=== PATIENT | male | born 1965 | race Caucasian/White ===

== ENCOUNTER 2021-05-20 21:37 | Inpatient (IN) | payer OTHER ==
[2021-05-20] MEDS ORDERED: ACETAMINOPHEN 500 MG TABLET (FP) PO ONE (22:05)
[2021-05-20] MEDS ORDERED: SODIUM CHLORIDE 1,000 ML ONE (22:05)
[2021-05-20 22:13] VITALS: BMI 29.7
[2021-05-20] MEDS ORDERED: ACETAMINOPHEN 500 MG TABLET (FP) ONE (22:38)
[2021-05-20 22:53] LABS: HEMATOCRIT 45.3 % (35.4-49); HEMOGLOBIN 15.2 GM/dL (11.7-16.9); MCHC 33.6 g/dl (32.0-35.9); MEAN CELL VOLUME 89.4 fl (80-96); MEAN PLT VOLUME 7.7 fl (7.5-11.1); PLATELET COUNT 244 10^3/uL (134-434); RBC 5.07 M/mm3 (4.00-5.60); RDW 13.1 % (11.9-15.9); WHITE BLOOD COUNT 7.2 K/mm3 (4.0-10.0)
[2021-05-20 22:58] LABS: BASO % 0.6 % (0-2.0); EOS % 0.5 % (0-4.5); LYMPH % 7.8 % (8-40); MONO % 12.7 % (3.8-10.2); NEUT % 78.4 % (42.8-82.8)
[2021-05-20 23:00] LABS: ALBUMIN 4.5 g/dl (3.4-5.0); BILIRUBIN,TOTAL 0.7 mg/dl (0.2-1); CALCIUM 9.7 mg/dl (8.5-10); CREATININE 0.5 mg/dl (0.55-1.3); TOT PROT 7.3 g/dl (6.4-8.2)
[2021-05-21 07:04] LABS: EPI CELLS 1 /uL (0-25.1); HYALINE CASTS 0 /uL (0-3.1); PH,URINE 5.5 (5.0-8.0); URINE APPEARANCE CLEAR; URINE BACTERIA 1 /uL (0-1359); URINE BILIRUBIN NEGATIVE (NEGATIVE); URINE COLOR YELLOW; URINE GLUCOSE (UA) NEGATIVE (NEGATIVE); URINE KETONE NEGATIVE (NEGATIVE); URINE LEUK ESTERASE NEGATIVE (NEGATIVE); URINE NITRITE NEGATIVE (NEGATIVE); URINE PROTEIN NEGATIVE (NEGATIVE); URINE RBC 2 /uL (0-23.9); URINE UROBILINOGEN 0.2 mg/dL (0.2-1.0); URINE WBC 2 /uL (0-25.8)
[2021-05-21] MEDS ORDERED: ACETAMINOPHEN 1000 MG/100 ML BAG IVPB ONE ×3 (07:33→09:00)
[2021-05-21] MEDS ORDERED: DEXAMETHASONE SOD PHOSPHATE 10 MG/1 ML VIAL IVPUSH ONE ×3 (07:51→09:00)
[2021-05-21] MEDS ORDERED: DEXAMETHASONE SOD PHOSPHATE 4 MG/1 ML VIAL ONE (08:08)
[2021-05-21] MEDS ORDERED: ACETAMINOPHEN INJECTION 100 ML IVPB ONE (08:08)
[2021-05-21] MEDS ORDERED: ENOXAPARIN NA (PORCINE) 60 MG/0.6 ML DISP.SYRIN SQ ONE (11:59)
[2021-05-21] MEDS: ENOXAPARIN NA (PORCINE) 40 MG/0.4 ML DISP.SYRIN SQ SCH (12:10)
[2021-05-21 12:14] LABS: ALBUMIN 4.2 g/dl (3.4-5.0); BILIRUBIN,TOTAL 0.4 mg/dl (0.2-1); CALCIUM 9.3 mg/dl (8.5-10); CREATININE 0.5 mg/dl (0.55-1.3); MAGNESIUM 2.2 mg/dL (1.8-2.4); TOT PROT 6.8 g/dl (6.4-8.2)
[2021-05-21 12:48] LABS: BASO % 0.7 % (0-2.0); EOS % 0.1 % (0-4.5); HEMOGLOBIN 14.9 GM/dL (11.7-16.9); LYMPH % 5.4 % (8-40); MCH 30.2 pg (25.7-33.7); MCHC 33.2 g/dl (32.0-35.9); MEAN CELL VOLUME 90.8 fl (80-96); MONO % 5.7 % (3.8-10.2); NEUT % 88.1 % (42.8-82.8); PLATELET COUNT 249 10^3/uL (134-434); RBC 4.95 M/mm3 (4.00-5.60); RDW 13.3 % (11.9-15.9)
[2021-05-22] MEDS ORDERED: PATIENT'S OWN MEDICATION (NON-FORMULARY) (Riluzole [Riluzole] 50 MG Tablet) PO SCH (09:00)
[2021-05-22 09:58] LABS: BASO % 0.3 % (0-2.0); EOS % 0.2 % (0-4.5); HEMATOCRIT 42.8 % (35.4-49); HEMOGLOBIN 14.6 GM/dL (11.7-16.9); LYMPH % 15.2 % (8-40); MCH 30.6 pg (25.7-33.7); MCHC 34.1 g/dl (32.0-35.9); MEAN CELL VOLUME 89.8 fl (80-96); MEAN PLT VOLUME 7.5 fl (7.5-11.1); MONO % 14.6 % (3.8-10.2); NEUT % 69.7 % (42.8-82.8); PLATELET COUNT 236 10^3/uL (134-434); RBC 4.76 M/mm3 (4.00-5.60); RDW 13.1 % (11.9-15.9); WHITE BLOOD COUNT 7.1 K/mm3 (4.0-10.0)
[2021-05-22] MEDS: ENOXAPARIN NA (PORCINE) 40 MG/0.4 ML DISP.SYRIN SQ SCH (10:25)
[2021-05-22] MEDS: ASPIRIN COATED 81 MG TABLET.EC PO SCH (10:26)
[2021-05-22] MEDS: DEXAMETHASONE SOD PHOSPHATE 4 MG/1 ML VIAL IVPUSH SCH (10:26)
[2021-05-22 10:41] LABS: CALCIUM 9.3 mg/dL (8.5-10.1)
[2021-05-22 10:42] LABS: ALBUMIN 3.6 g/dl (3.4-5.0); BLOOD UREA NITROGEN 22.4 mg/dL (7-18); MAGNESIUM 2.5 mg/dL (1.8-2.4)
[2021-05-22 10:44] LABS: CREATININE 0.6 mg/dL (0.55-1.3)
[2021-05-22 10:46] LABS: BILIRUBIN,TOTAL 0.4 mg/dL (0.2-1); TOT PROT 6.8 g/dl (6.4-8.2)
[2021-05-22] MEDS ORDERED: REMDESIVIR 200 MG in SODIUM CHLORIDE 250 ML IVPB ONE (11:30)
[2021-05-22] MEDS: ATORVASTATIN CA 10 MG TABLET (FP) PO SCH (21:40)
[2021-05-23] MEDS ORDERED: [UNRECOGNIZED DRUG - OTHER] IJ SCH (10:00)
[2021-05-23] MEDS ORDERED: METHYLCOBALAMIN NR SCH (10:00)
[2021-05-23] MEDS ORDERED: METHYLCOBALAMIN IJ SCH (10:00)
[2021-05-23 10:03] LABS: HEMATOCRIT 40.9 % (35.4-49); HEMOGLOBIN 13.5 GM/dL (11.7-16.9); MCH 29.7 pg (25.7-33.7); MCHC 32.9 g/dl (32.0-35.9); MEAN CELL VOLUME 90.2 fl (80-96); MEAN PLT VOLUME 7.9 fl (7.5-11.1); PLATELET COUNT 247 10^3/uL (134-434); RBC 4.54 M/mm3 (4.00-5.60); RDW 13.1 % (11.9-15.9); WHITE BLOOD COUNT 5.7 K/mm3 (4.0-10.0)
[2021-05-23] MEDS: ENOXAPARIN NA (PORCINE) 40 MG/0.4 ML DISP.SYRIN SQ SCH (10:04)
[2021-05-23] MEDS: DEXAMETHASONE SOD PHOSPHATE 4 MG/1 ML VIAL IVPUSH SCH (10:05)
[2021-05-23] MEDS: ASPIRIN COATED 81 MG TABLET.EC PO SCH (10:07)
[2021-05-23 10:20] LABS: CALCIUM 8.7 mg/dL (8.5-10.1)
[2021-05-23 10:21] LABS: ALBUMIN 3.4 g/dl (3.4-5.0); BLOOD UREA NITROGEN 20.2 mg/dL (7-18)
[2021-05-23 10:24] LABS: CREATININE 0.5 mg/dL (0.55-1.3)
[2021-05-23 10:25] LABS: BILIRUBIN,TOTAL 0.3 mg/dL (0.2-1)
[2021-05-23 10:26] LABS: TOT PROT 6.1 g/dl (6.4-8.2)
[2021-05-23] MEDS: REMDESIVIR 100 MG in SODIUM CHLORIDE 250 ML IVPB SCH (12:13)
[2021-05-23] MEDS: ATORVASTATIN CA 10 MG TABLET (FP) PO SCH (21:02)
[2021-05-23] MEDS: MELATONIN 5 MG TABLETS PO PRN (23:29)
[2021-05-24] MEDS: DEXAMETHASONE SOD PHOSPHATE 4 MG/1 ML VIAL IVPUSH SCH (09:51)
[2021-05-24] MEDS: ENOXAPARIN NA (PORCINE) 40 MG/0.4 ML DISP.SYRIN SQ SCH (09:51)
[2021-05-24] MEDS: ASPIRIN COATED 81 MG TABLET.EC PO SCH (09:51)
[2021-05-24 09:52] LABS: ALBUMIN 3.9 g/dl (3.4-5.0); CALCIUM 9.1 mg/dL (8.5-10.1)
[2021-05-24 09:55] LABS: CREATININE 0.5 mg/dL (0.55-1.3)
[2021-05-24 09:57] LABS: BILIRUBIN,TOTAL 0.3 mg/dL (0.2-1); TOT PROT 7.1 g/dl (6.4-8.2)
[2021-05-24] MEDS: REMDESIVIR 100 MG in SODIUM CHLORIDE 250 ML IVPB SCH (12:15)
[2021-05-24] MEDS: guaiFENesin/D-METHORPHAN HB 10 ML UNIT-DOSE CUPS PO PRN (18:12)
[2021-05-24] MEDS: ATORVASTATIN CA 10 MG TABLET (FP) PO SCH (22:07)
[2021-05-24] MEDS: MELATONIN 5 MG TABLETS PO PRN (22:07)
[2021-05-25 09:11] LABS: ALBUMIN 3.5 g/dl (3.4-5.0); CALCIUM 8.8 mg/dL (8.5-10.1)
[2021-05-25 09:12] LABS: BLOOD UREA NITROGEN 18.3 mg/dL (7-18)
[2021-05-25 09:14] LABS: CREATININE 0.4 mg/dL (0.55-1.3)
[2021-05-25 09:16] LABS: BILIRUBIN,TOTAL 0.5 mg/dL (0.2-1); TOT PROT 6.3 g/dl (6.4-8.2)
[2021-05-25] MEDS: ASPIRIN COATED 81 MG TABLET.EC PO SCH (11:15)
[2021-05-25] MEDS: DEXAMETHASONE SOD PHOSPHATE 4 MG/1 ML VIAL IVPUSH SCH (11:15)
[2021-05-25] MEDS: REMDESIVIR 100 MG in SODIUM CHLORIDE 250 ML IVPB SCH (11:16)
[2021-05-25] MEDS: ENOXAPARIN NA (PORCINE) 40 MG/0.4 ML DISP.SYRIN SQ SCH (11:16)
[2021-05-25] MEDS: guaiFENesin/D-METHORPHAN HB 10 ML UNIT-DOSE CUPS PO PRN (17:25)
[2021-05-25] MEDS: ATORVASTATIN CA 10 MG TABLET (FP) PO SCH (21:39)
[2021-05-25] MEDS: MELATONIN 5 MG TABLETS PO PRN (21:39)
[2021-05-26 09:01] LABS: HEMATOCRIT 43.2 % (35.4-49); HEMOGLOBIN 14.4 GM/dL (11.7-16.9); MCH 29.9 pg (25.7-33.7); MCHC 33.3 g/dl (32.0-35.9); MEAN CELL VOLUME 89.6 fl (80-96); MEAN PLT VOLUME 7.5 fl (7.5-11.1); PLATELET COUNT 321 10^3/uL (134-434); RBC 4.83 M/mm3 (4.00-5.60); RDW 12.8 % (11.9-15.9)
[2021-05-26 09:32] LABS: MAGNESIUM 2.6 mg/dL (1.8-2.4)
[2021-05-26 09:36] LABS: PHOSPHOROUS 4.2 mg/dL (2.5-4.9)
[2021-05-26] MEDS: DEXAMETHASONE SOD PHOSPHATE 4 MG/1 ML VIAL IVPUSH SCH (10:09)
[2021-05-26] MEDS: ASPIRIN COATED 81 MG TABLET.EC PO SCH (10:09)
[2021-05-26] MEDS: ENOXAPARIN NA (PORCINE) 40 MG/0.4 ML DISP.SYRIN SQ SCH (10:10)
[2021-05-26] MEDS: guaiFENesin/D-METHORPHAN HB 10 ML UNIT-DOSE CUPS PO PRN ×2 (10:50→16:59)
[2021-05-26 10:52] LABS: ERYTHROCYTE SEDIMENTATION RATE 8 mm/hr (0-20)
[2021-05-26] MEDS: REMDESIVIR 100 MG in SODIUM CHLORIDE 250 ML IVPB SCH (10:54)
[2021-05-26 12:03] LABS: ANISOCYTOSIS 0; HELMET CELLS 0; HOWELL-JOLLY BODIES 0; MACROCYTOSIS 0; OVALOCYTE 0; PLATELET ESTIMATE NORMAL; ROULEAU 0; SICKELED CELLS 0; TARGET CELLS 0; TEAR DROP CELLS 0; TOXIC GRANULATION 0
[2021-05-26] MEDS: ATORVASTATIN CA 10 MG TABLET (FP) PO SCH (21:05)
[2021-05-27 09:27] LABS: HEMATOCRIT 43.2 % (35.4-49); HEMOGLOBIN 14.2 GM/dL (11.7-16.9); MCH 29.6 pg (25.7-33.7); MCHC 32.9 g/dl (32.0-35.9); MEAN CELL VOLUME 90.1 fl (80-96); MEAN PLT VOLUME 7.6 fl (7.5-11.1); PLATELET COUNT 341 10^3/uL (134-434); RDW 12.8 % (11.9-15.9); WHITE BLOOD COUNT 11.6 K/mm3 (4.0-10.0)
[2021-05-27 09:33] LABS: MAGNESIUM 2.7 mg/dL (1.8-2.4)
[2021-05-27 09:37] LABS: PHOSPHOROUS 4.9 mg/dL (2.5-4.9)
[2021-05-27] MEDS ORDERED: PT OWN MED DRAWER 7, Y5N ONE (10:18)
[2021-05-27] MEDS: ASPIRIN COATED 81 MG TABLET.EC PO SCH (10:25)
[2021-05-27] MEDS: DEXAMETHASONE SOD PHOSPHATE 4 MG/1 ML VIAL IVPUSH SCH (10:25)
[2021-05-27] MEDS: ENOXAPARIN NA (PORCINE) 40 MG/0.4 ML DISP.SYRIN SQ SCH (10:27)
[2021-05-27 10:46] LABS: ERYTHROCYTE SEDIMENTATION RATE 6 mm/hr (0-20)
[2021-05-27 10:55] LABS: ANISOCYTOSIS 2+; MACROCYTOSIS 2+; PLATELET ESTIMATE NORMAL
[2021-05-27 15:32] VITALS: BP 131/83; PULSE 84; TEMP 98.1
== END 2021-05-27 18:32 | disposition home or self-care (01) | DRG 137 ==
LOC: FER 21:37 → J8W 05-21 16:13
PROVIDERS: ADMIT Internal Medicine; ATTEND Internal Medicine
PROC: XW033E5 Introduction of Remdesivir Anti-infective into Peripheral Vein, Percutaneous Approach, New Technology Group 5 (ICD-10-PCS; principal; 2021-05-21)
PROC: 3E0333Z Introduction of Anti-inflammatory into Peripheral Vein, Percutaneous Approach (ICD-10-PCS; 2021-05-22)
DX: U07.1 COVID-19 (principal); J12.82 Pneumonia due to coronavirus disease 2019; J96.01 Acute respiratory failure with hypoxia; G12.21 Amyotrophic lateral sclerosis; R00.0 Tachycardia, unspecified
CPT/HCPCS: 36415; 71045-TC-FY; 80048; 80053; 81003; 82550; 82553; 82728; 83605; 83615; 83735; 84100; 84484; 85025; 85027; 85379; 85651; 86140; 87040; 87086; 87804; 87807; 87899; 93005; 93010; 94761; 99285-25; C9399; C9803-CS; J1100; U0003; U0005

== ENCOUNTER 2021-12-09 20:31 | Emergency (ER) | payer OTHER ==
[2021-12-09 20:45] VITALS: BP 152/95; PULSE 54; RESP 20; TEMP 98.5; BMI 27.0
== END 2021-12-09 21:53 | disposition home or self-care (01) ==
LOC: FER 20:31
DX: R13.10 Dysphagia, unspecified (principal); G12.21 Amyotrophic lateral sclerosis
CPT/HCPCS: 99283-25